=== PATIENT | male | born 1955 | race Two or more races ===

== ENCOUNTER 2020-07-31 07:21 | Outpatient (CLI) | payer OTHER | END 2020-07-31 08:28 | disposition home or self-care (01) | LOC: LAB 07:21 | DX: R32 Unspecified urinary incontinence (principal); E78.2 Mixed hyperlipidemia; D50.8 Other iron deficiency anemias; N39.0 Urinary tract infection, site not specified; R97.8 Other abnormal tumor markers; Z12.11 Encounter for screening for malignant neoplasm of colon; D58.8 Other specified hereditary hemolytic anemias; E55.9 Vitamin D deficiency, unspecified; I10 Essential (primary) hypertension; F34.89 Other specified persistent mood disorders ==

== ENCOUNTER 2022-06-14 11:37 | Emergency (ER) | payer OTHER ==
[~2022-06-14] VITALS: Ht 188 cm; Wt 115.7 kg
[2022-06-14] MEDS ORDERED: LOSARTAN POTASS25 MG PO (12:58)
== END 2022-06-14 17:22 | disposition home or self-care (01) ==
LOC: ER 11:37
DX: N43.2 Other hydrocele (principal); I10 Essential (primary) hypertension; Z95.1 Presence of aortocoronary bypass graft